=== PATIENT | male | born 1925 | race Caucasian/White ===

== ENCOUNTER 2016-12-11 21:57 | Observation (INO) | payer MEDICARE, OTHER ==
[2016-12-11 23:17] LABS: BASOPHILS 0.5 % (0.0-2.0); EOSINOPHILS 9.9 % (0.0-6.0); EOSINOPHILS# 0.7 X 10^3uL (0.0-0.4); HEMATOCRIT 38.2 % (42.0-54.0); LYMPHOCYTES 27.6 % (20.0-40.0); MEAN CELL VOLUME 102.8 fL (80.0-100.0); MONOCYTES 7.6 % (2.0-10.0); MONOCYTES# 0.6 X 10^3uL (0.2-1.0); NEUTROPHILS 54.4 % (54.0-75.0); PLATELET COUNT 257 X 10^3uL (130-440); RED BLOOD COUNT 3.72 X 10^6uL (4.20-6.10); RED CELL DISTRIBUTION WIDTH 14.7 % (11.5-14.5); WHITE BLOOD COUNT 7.3 X 10^3uL (3.9-10.7)
[2016-12-11 23:22] LABS: ALBUMIN 3.7 g/dL (3.5-5.0); ALKALINE PHOSPHATASE 100 U/L (38-126); ALT 32 U/L (21-72); AST 35 U/L (17-59); BILIRUBIN, DIRECT 0.4 mg/dL (0.0-0.4); BILIRUBIN, TOTAL 0.5 mg/dL (0.2-1.3); TOTAL PROTEIN 6.8 g/dL (6.3-8.2)
[2016-12-11 23:33] LABS: TROPONIN I 0.013 ng/mL (0.00-0.034)
[2016-12-11 23:55] LABS: ARTERIAL BLOOD GAS HCO3 17.7 mmol/L (22-26); ARTERIAL BLOOD GAS PCO2 34.2 mmHg (35-45)
[2016-12-12 00:20] LABS: MAGNESIUM 1.9 mg/dL (1.6-2.3)
[2016-12-12 00:31] LABS: BLOOD UREA NITROGEN 39 mg/dL (9-20); CALCIUM 9.1 mg/dL (8.4-10.2); CHLORIDE 105 mmol/L (98-107); GLUCOSE 73 mg/dL (70-100); POTASSIUM 5.4 mmol/L (3.5-5.1); SODIUM 135 mmol/L (137-145)
--- NOTE | 2016-12-12 01:19 | CT REPORT ---
HISTORY: Headache and dizziness COMPARISON: None. TECHNIQUE: Axial non-contrast images obtained from skull vertex through foramen magnum. Dose reduction technique was utilized. FINDINGS: There is mild global brain atrophy compatible with age. There is a single subcentimeter calcification in the right frontal lobe of doubtful clinical significance. There is no hemorrhage. There is no h ydrocephalus. No mass lesion is identified. Elliott white differentiation adequate, there is no infarc tion. No midline shift is identified. The paranasal sinuses are clear. IMPRESSION: 1. No acute intracranial abnormality. Final Electronic Signature: This report was electronically signed by Joselo Trammell MD on 12/12/2016 1 :17 AM. tparadis /
--- NOTE | 2016-12-12 01:24 | CT REPORT ---
HISTORY: Shortness of breath COMPARISON: None. TECHNIQUE: This examination was performed using automated exposure control, adjustment of mA or kV according to patient size, and/or use of iterative reconstruction technique. Axial CT imaging from the thoracic i nlet through the upper abdomen following administration of IV contrast during peak opacification of t he pulmonary arteries, multiplanar reformatted and 3-D images are evaluated. 100cc Isovue 300 and contrast. FINDINGS: There is emphysema and both lungs at the apices. There is some scarring or atelectasis at both lung b ases. There is no lobar consolidation, pleural effusion, or pneumothorax. There is coronary artery and aortic atherosclerosis without aneurysm. Pain pulmonary artery is normal size. The heart is normal size. There is no pericardial effusion. There is no gross mediastinal or h ilar lymphadenopathy. There is no focal bone lesion. There are multiple calcified gallstones within the gallbladder. There is no pulmonary embolism. IMPRESSION: 1. No pulmonary masses. 2. Emphysema. 3. Cholelithiasis. 4. Coronary artery and aortic atherosclerosis. .. Final Electronic Signature: This report was electronically signed by Joselo Trammell MD on 12/12/2016 1 :21 AM. tparadis /
[2016-12-12] MEDS ORDERED: POLYETHYLENE GLYCOL 3350 17 GM POWD.PACK PO PRN (01:32)
[2016-12-12] MEDS ORDERED: ZOLPIDEM TARTRATE 5 MG TABLET PO PRN (01:32)
[2016-12-12] MEDS ORDERED: ACETAMINOPHEN 325 MG TABLET PO PRN (01:32)
[2016-12-12] MEDS ORDERED: HOME MEDICATION LIST NEEDED 1 EA EACH MISC ONE (01:32)
[2016-12-12] MEDS ORDERED: MAG-AL PLUS XS SUSP 30 ML UDC PO PRN (01:32)
[2016-12-12] MEDS ORDERED: METHYLPREDNISOLONE SOD 125 MG/2 ML VIAL ONE (01:45)
[2016-12-12] MEDS ORDERED: IPRATROPIUM/ALBUTEROL 0.5/3 MG 3 ML AMPUL.NEB INHALATION ONE (01:45)
--- NOTE | 2016-12-12 01:47 | ER NURSING DOCUMENTATION ---
Nurse's Notes [facility] Name:Purvi Aguilar Age:89 yrs Sex:Male :1925 Arrival Date:12/11/2016 Time:21:57 Bed1 Private MD:Abilio Hernandez Diagnosis:Dizziness - Vertigo Presentation: 12/11 22:28 Acuity: ANGELIQUE 2 mv 22:30 Presenting complaint: Patient states: he is feeling numb from head to toe and dizzy and mv no energy. has been going on for a few days but was worse tonight. Transition of care: Home. 22:30 Method Of Arrival: Private Vehicle mv 22:30 Notified ED Physician of patient's arrival and CC Dr. Radford notified. mv Triage Assessment: 22:39 General: Appears in no apparent distress, Behavior is appropriate for age, cooperative. mv Pain: Denies pain. Neuro: Reports numbness in head to toe. 23:06 Cardiovascular: No deficits noted. Respiratory: No deficits noted. GI: No deficits mv noted. : No deficits noted. Derm: No deficits noted. Musculoskeletal: No deficits noted. Historical: - Allergies: No known drug Allergies; - Home Meds: 1. Celebrex 100 mg oral cap once daily 2. lisinopril 5 mg oral tab once daily 3. 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 - Ebola Screening: : No symptoms or risks identified at this time. . - Immunization history: Pneumococcal vaccine is up to date, Flu Vaccine < 1 year. - Social history: Smoking status: Patient uses tobacco products, current every day smoker. Screenin/11 01:21 Infectious Disease Risk None. Abuse screen: Denies threats or abuse. Nutritional bw2 screening: No deficits noted. Assessment: 12/11 23:05 See Triage Assessment done by same RN. mv Vital Signs: 22:13 BP 105 / 63; Pulse 78; Resp 14; Temp 98.2; Pulse Ox 91% on R/A; Weight 61.23 kg; Height mv 5 ft. 7 in. (170.18 cm); Pain 0/10; 12/12 00:07 BP 114 / 63 Supine; Pulse 67; Pulse Ox 97% on R/A; bw2 00:07 BP 102 / 67 Sitting; Pulse 74; Resp 18; Pulse Ox 94% on R/A; bw2 00:07 BP 106 / 65 Standing; Pulse 79; Resp 18; Pulse Ox 92% on R/A; bw2 01:21 BP 129 / 68; Pulse 69; Resp 18; Pulse Ox 97% 2 lpm ; bw2 12/11 22:13 Body Mass Index 21.14 (61.23 kg, 170.18 cm) mv ED Course: 12/11 22:04 Patient arrived in ED. em2 22:04 Abilio Hernandez MD is Private Physician. em2 22:15 Kwame Radford MD is Attending Physician. be 22:21 EKG done. (by ED staff). Inserted saline lock: 20 gauge in left antecubital area and em1 blood collected. 22:28 Triage completed. mv 22:30 Port Xray Completed. mr 22:51 Urine collected. Clean catch specimen. em1 23:05 Arm band placed on Bed in low position Call Light in Reach Gowned. mv 23:45 ABG drawn. (by ED staff). on oxygen. positive Henry test; after draw pressure held on nf site for 5 minutes and coban dressing applied. 12/12 00:05 Jaimie Read is Primary Nurse. bw2 00:14 while standing for orthostatics, pt became dizzy. bw2 00:15 trail of pt being off oxygen failed. 10 min after oxygen was removed pt oxygen level bw2 was at 87%. oxygen placed back on oxygen. 01:21 Henry Santizo MD is Admitting Physician. be 01:21 Valuables Remains with patient Patient has correct armband on for positive bw2 identification. Placed in gown. Side rails up X2. 01:[address] mr 01:[address] back [address]. mr Administered Medications: 12/11 23:03 Drug: NS 0.9% 1000 ml; Route: IV; Rate: bolus; Site: left antecubital; mv 12/12 01:37 Follow up: IV Status: Completed infusion bw2 00:22 Drug: NS 0.9% 1000 ml; Route: IV; Rate: bolus; Site: right antecubital; bw2 01:37 Follow up: IV Status: Completed infusion bw2 01:35 Drug: Solu-MEDROL 125 mg; Route: IVP; Site: left antecubital; bw2 01:37 Follow up: Response: No adverse reaction bw2 01:35 Drug: DuoNeb (Albuterol 2.5 mg, Atrovent 0.5 mg); 3 ml; Route: Nebulizer; bw2 01:37 Follow up: Response: No adverse reaction bw2 Point of Care Testing: Urine Dip: 12/11 22:51 pH: 6.0; ; Specific [place]: 1.010; Ketones: Negative; Glucose: Negative; Protein: em1 Negative; Leukocytes: Negative; Nitrite: Negative ; Blood: Negative; Bilirubin: Negative ; Urobilinogen: Normal Outcome: 12/12 01:22 Decision to Admit by Provider. be 01:41 Admitted to Med/surg accompanied by nurse, family with patient. bw2 01:41 Condition: good 01:41 Discharge Assessment: Patient awake, alert and oriented x 3. No cognitive and/or functional deficits noted. Patient verbalized understanding of disposition instructions. 01:45 Report given to Dennis COYNE bw2 01:45 Instructed on need to admit Demonstrated understanding of instructions. 01:47 Patient left the ED. bw2 Signatures: Maggie Stein RN RN nf Elliott, Brian, MD MD be Meinking-tech, Fernanda-tech em1 Meinking-reg, Fernanda-reg em2 bing da silva Beth bw2 Du Saravia
--- NOTE | 2016-12-12 01:47 | ER PHYSICIAN DOCUMENTATION ---
Physician Documentation [facility] Name:Purvi Aguilar Age:89 yrs Sex:Male :1925 Arrival Date:12/11/2016 Time:21:57 Bed1 Private MD:Abilio Hernandez ED, Brian Disposition: 12/12/16 01:22 Admit ordered for Henry Santizo. Preliminary diagnosis is Dizziness - Vertigo. - Bed requested for Medical/Surgical. - Condition is Fair. - Problem is new. - Symptoms have improved. 23 HR OBS No HPI: 12/11 22:58 This 89 yrs old Male presents to ER via Private Vehicle with complaints of be Dizziness. 22:58 The patient presents with generalized weakness, lightheadedness. Onset: The be symptom(s)/episode began/occurred gradually, today. Associated signs and symptoms: Pertinent negatives: ataxia, chest pain, confusion, diaphoresis, head injury, headache, nausea, vomiting, cough or urinary symptoms. Historical: - Allergies: No known drug Allergies; - Home Meds: 1. Celebrex 100 mg oral cap once daily 2. lisinopril 5 mg oral tab once daily 3. 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 - Ebola Screening: : No symptoms or risks identified at this time. . - Immunization history: Pneumococcal vaccine is up to date, Flu Vaccine < 1 year. - Social history: Smoking status: Patient uses tobacco products, current every day smoker. ROS: 22:59 Neuro: Positive for dizziness, weakness, Negative for altered mental status, headache, be speech changes, near syncope, visual changes. 22:59 All other systems are negative. Exam: 23:00 Constitutional: This is a well developed, well nourished patient who is awake, alert, be and in no acute distress. Head/Face: Normocephalic, atraumatic. Eyes: Pupils equal round and reactive to light, extra-ocular motions intact. Lids and lashes normal. Conjunctiva and sclera are non-icteric and not injected. Cornea within normal limits. Periorbital areas with no swelling, redness, or edema. ENT: Nares patent. No nasal discharge, no septal abnormalities noted. Tympanic membranes are normal and external auditory canals are clear. Oropharynx with no redness, swelling, or masses, exudates, or evidence of obstruction, uvula midline. Mucous membranes moist. Neck: Trachea midline, no thyromegaly or masses palpated, and no cervical lymphadenopathy. Supple, full range of motion without nuchal rigidity, or vertebral point tenderness. No Meningismus. Chest/axilla: Normal chest wall appearance and motion. Nontender with no deformity. No lesions are appreciated. Cardiovascular: Regular rate and rhythm with a normal S1 and S2. No gallops, murmurs, or rubs. Normal PMI, no JVD. No pulse deficits. Respiratory: Lungs have equal breath sounds bilaterally, clear to auscultation and percussion. No rales, rhonchi or wheezes noted. No increased work of breathing, no retractions or nasal flaring. Abdomen/GI: Soft, non-tender, with normal bowel sounds. No distension or tympany. No guarding or rebound. No evidence of tenderness throughout. Back: No spinal tenderness. No costovertebral tenderness. Full range of motion. 23:00 Skin: Warm, dry with normal turgor. Normal color with no rashes, no lesions, and no be evidence of cellulitis. 23:00 Neuro: Orientation: is normal, Cerebellar function: is grossly normal, Gait: is steady, at a normal pace, without difficulty. Vital Signs: 22:13 BP 105 / 63; Pulse 78; Resp 14; Temp 98.2; Pulse Ox 91% on R/A; Weight 61.23 kg; Height mv 5 ft. 7 in. (170.18 cm); Pain 0/10; 12/12 00:07 BP 114 / 63 Supine; Pulse 67; Pulse Ox 97% on R/A; bw2 00:07 BP 102 / 67 Sitting; Pulse 74; Resp 18; Pulse Ox 94% on R/A; bw2 00:07 BP 106 / 65 Standing; Pulse 79; Resp 18; Pulse Ox 92% on R/A; bw2 01:21 BP 129 / 68; Pulse 69; Resp 18; Pulse Ox 97% 2 lpm ; bw2 12/11 22:13 Body Mass Index 21.14 (61.23 kg, 170.18 cm) mv MDM: 12/11 22:17 Patient medically screened. be 23:01 Differential diagnosis: cardiac arrhythmia, CVA, generalized weakness, hypovolemia, be idiopathic dizziness, sepsis. Data reviewed: vital signs, nurses notes, lab test result(s), EKG, radiologic studies, plain films. ECG:. 12/12 01:24 Data reviewed: and as a result, I will admit patient, administer IV fluids, NS bolus, be O2. 12/11 23:21 Order name: CBC AUTO DIF, MDIF/RMOR IF IND; Complete Time: 01:24 EDCO 12/11 23:37 Interpretation: Normal Except: Anemia. be 12/11 23:28 Order name: HEPATIC PANEL; Complete Time: 01:24 EDCO 12/11 23:38 Interpretation: Normal. be 12/11 23:37 Order name: TROPONIN I; Complete Time: 01:24 EDCO 12/11 23:38 Interpretation: Normal. be 12/11 23:56 Order name: ARTERIAL BLOOD GAS; Complete Time: 23:57 EDCO 12/12 00:20 Interpretation: Abnormal. be 12/12 00:22 Order name: MAGNESIUM; Complete Time: 01:24 EDCO 12/12 01:23 Interpretation: Normal. be 12/12 00:33 Order name: BASIC METABOLIC PANEL; Complete Time: 01:24 EDCO 12/12 01:24 Interpretation: Normal Except: prerenal azotemia. be 12/12 06:28 Order name: BASIC METABOLIC PANEL EDCO 12/12 06:45 Order name: CBC AUTO DIF, MDIF/RMOR IF IND EDCO 12/12 09:11 Order name: TROPONIN I [facility] 12/12 01:20 Order name: CAT SCAN; HEAD W/O CON [id number]; Complete Time: 01:24 EDCO 12/12 01:24 Interpretation: Normal. be 12/12 01:26 Order name: CAT SCAN; CHEST ANGIO [id number]; Complete Time: 01:29 EDCO 12/12 01:28 Interpretation: Normal Except: emphysema, cholelithiasis and CAD. be 12/12 08:59 Order name: CHEST; SINGLE VIEW [id number] EDCO 12/12 11:19 Order name: BRAIN W/WO CONTRAST [id number] [facility]CO 12/13 17:21 Order name: US SOFT TISSUE HEAD/NECK [id number] EDCO 12/11 22:16 Order name: 12-lead EKG; Complete Time: 22:59 be 12/11 22:16 Order name: Iv Saline Lock; Complete Time: 22:59 be 12/11 22:16 Order name: Place Patient On Monitor; Complete Time: 22:59 be 12/11 22:16 Order name: Pulse Ox Continuous; Complete Time: 23:04 be 12/11 22:16 Order name: Orthostatics after Bolus; Complete Time: 00:05 be EC/10 23:01 Rate is 74 beats/min. Rhythm is regular, Normal Sinus Rhythm with No ectopy. QRS [place] be is Normal. TN interval is normal. QRS interval is normal. QT interval is normal. No Q waves. T waves are Peaked. No ST changes noted. Clinical impression: Normal ECG. Interpreted by me. Dispensed Medications: 23:03 Drug: NS 0.9% 1000 ml; Route: IV; Rate: bolus; Site: left antecubital; 12/12 01:37 Follow up: IV Status: Completed infusion bw2 00:22 Drug: NS 0.9% 1000 ml; Route: IV; Rate: bolus; Site: right antecubital; bw2 01:37 Follow up: IV Status: Completed infusion bw2 01:35 Drug: Solu-MEDROL 125 mg; Route: IVP; Site: left antecubital; bw2 01:37 Follow up: Response: No adverse reaction bw2 01:35 Drug: DuoNeb (Albuterol 2.5 mg, Atrovent 0.5 mg); 3 ml; Route: Nebulizer; bw2 01:37 Follow up: Response: No adverse reaction 2 Point of Care Testing: Urine Dip: 12/11 22:51 pH: 6.0; ; Specific [place]: 1.010; Ketones: Negative; Glucose: Negative; Protein: em1 Negative; Leukocytes: Negative; Nitrite: Negative ; Blood: Negative; Bilirubin: Negative ; Urobilinogen: Normal Signatures: Kwame Radford MD MD be vogel, margaux mv Wisely, Beth 2
[2016-12-12] MEDS ORDERED: NORMAL SALINE 1,000 ML IV SCH (02:00)
[2016-12-12 06:07] LABS: BASOPHILS 0.5 % (0.0-2.0); EOSINOPHILS 0.5 % (0.0-6.0); HEMATOCRIT 37.3 % (42.0-54.0); HEMOGLOBIN 12.6 g/dL (14.0-18.0); LYMPHOCYTES 4.6 % (20.0-40.0); LYMPHOCYTES# 0.3 X 10^3uL (0.8-3.8); MEAN CELL VOLUME 102.6 fL (80.0-100.0); MEAN CORPUS. HGB CONCENTRATION 33.9 g/dL (32.0-36.0); MEAN CORPUSCULAR HEMOGLOBIN 34.7 pg (29.0-35.0); MEAN PLATELET VOLUME 8.2 fL (7.4-10.4); MONOCYTES 0.4 % (2.0-10.0); NEUTROPHILS# 7.3 X 10^3uL (2.6-6.7); PLATELET COUNT 252 X 10^3uL (130-440); RED BLOOD COUNT 3.63 X 10^6uL (4.20-6.10); RED CELL DISTRIBUTION WIDTH 14.8 % (11.5-14.5); WHITE BLOOD COUNT 7.6 X 10^3uL (3.9-10.7)
[2016-12-12 06:17] LABS: BLOOD UREA NITROGEN 33 mg/dL (9-20); CALCIUM 8.7 mg/dL (8.4-10.2); CHLORIDE 108 mmol/L (98-107); GLUCOSE 77 mg/dL (70-100); POTASSIUM 5.5 mmol/L (3.5-5.1); SODIUM 137 mmol/L (137-145)
[2016-12-12] MEDS ORDERED: IPRATROPIUM/ALBUTEROL 0.5/3 MG 3 ML AMPUL.NEB INHALATION SCH ×2 (07:30→13:00)
--- NOTE | 2016-12-12 08:34 | RADIOLOGY REPORT ---
A limited single portable view of the chest is correlated with CT scan. Heart and vessels are unremarkable. Mild bibasilar scarring and/or atelectasis is noted. No infiltrate, fluid or pneumothorax is seen. IMPRESSION: Mild bibasilar scarring and/or atelectasis. MTDD
[2016-12-12] MEDS ORDERED: predniSONE 20 MG TABLET PO SCH (09:00)
[2016-12-12] MEDS ORDERED: LISINOPRIL 5 MG TABLET PO SCH (09:00)
[2016-12-12] MEDS ORDERED: CELECOXIB 100 MG CAPSULE PO SCH (09:00)
--- NOTE | 2016-12-12 09:09 | HISTORY & PHYSICAL ---
Reason for admission: Dizziness. Low oxygen level. Weakness. HPI: 89-year-old male. He generally lives in [place] but states here in [place] during the summer. Previously seen by Dr. Hernandez on a number of occasions although not recently. Gradual decline in strength and balance over the last few years. Previously attributed to peripheral vascular disease but apparently more recently diagnosed with spinal stenosis. He has had epidural injections times multiple with some improvement. Over the last few days, he has had increasing feeling of tingling all over his body including bilateral upper and lower extremities, torso, and face. In association with this, he has felt more fatigued and generally weaker. More difficulty walking with decrease in balance. No falls. However, symptoms were severe enough last night that he came into the emergency department. He was given IV fluids and oxygen (he was hypoxic) and had some improvement in symptoms. He is being admitted for further evaluation and treatment. CT angiogram of the chest did not show any evidence of PE or focal infiltrate. However, there was evidence of emphysema. He denies any recent fevers or chills. No significant headache. No changes in cognition, changes in vision, focal changes in strength or sensation ( generalized symptoms as above). No chest pain or palpitations, although he does have a history of CAD. No orthopnea, PND, or lower extremity edema. No abdominal pain, nausea, or vomiting. No dysuria or frequency. He did have diarrhea a few days ago with loose stools but no blood. Resolved as of yesterday. Of note, he does have a history of melanoma and has noticed a lump in his left jaw angle region. This is near the resection site of one of his melanomas. He has not had recent imaging. Past medical history: Allergy induced asthma CAD with PTCA times 2 in roughly 2004 Hypertension Hypercholesterolemia Lumbar spine spinal stenosis Melanoma times 2 (resection without x-ray therapy or chemotherapy) Renal carcinoma on the left, status post partial nephrectomy (without x-ray therapy or chemotherapy) Arthritis Smoking, long history Past surgical history: Left kidney partial resection for renal cell carcinoma Melanoma resection times 2 involving head and neck Hernia repair times 2 Cataracts Left rotator cuff surgery Allergies: None. Medications: Advair at unknown dose 2 inhalations per day; another inhaler 1 time per day; lisinopril 5 milligrams by mouth daily; atorvastatin 40 milligrams by mouth daily at bedtime; Celebrex 100 milligrams by mouth daily. He does not take aspirin. Social: Still smokes. 1 half to three-quarter pack per day. 70 year history of smoking. Alcohol 2-3 drinks of vodka per day. He does not measure out each glass and this may be more than 1 shot per drink. No recreational drugs. Retired savings and loan director. Family history: Mother with lung cancer. Brother with colon cancer. Another brother with prostate cancer. Review of systems: Pertinent positives and negatives are as above. Remainder are negative. Physical examination: Vital signs: Temperature 37.2. Blood pressure 114/61, pulse 74, respirations 16. 94% on 2 liters. Saturating in the mid to high eighties in the emergency department on room air. General: Thin elderly male. No apparent distress. HEENT: Normocephalic atraumatic. Pupils are equal, round, and reactive to light. Extraocular muscles are intact with full range of motion. Oropharynx is clear. 1 centimeter firm freely mobile nodule at the angle of the jaw on the left. Neck: Supple. No thyromegaly. Chest: Decreased breath sounds. Minimal scattered wheezes. Bibasilar rales. Cardiac: Regular rate and rhythm. No S3 or S4. No murmur. No JVD at 90. Abdomen: Positive bowel sounds. Soft, nontender, nondistended. No hepatosplenomegaly. Back: No CVA or spinous process tenderness. Lymph: No cervical or supraclavicular lymphadenopathy other than left neck nodule as above. Neuro: Alert and oriented times 4. Light touch sensation with paresthesias diffusely including face, arms, legs. Strength 5/5 in bilateral upper and lower extremities with the exception of left shoulder which is 3/5 (prior surgery). Skin: No rash. Labs: White blood count 7.3 with hematocrit 38 and MCV of 103. Platelet count 257. Chem panel showing sodium of 135, potassium 5.4, creatinine 1.4. LFTs normal. PT at 7.32 with CO2 of 34, O2 of 86, bicarbonate of 18. Chest x-ray: Hyperinflation. No lateral. No focal infiltrate. CT angiogram of chest: No pulmonary embolus. Emphysema changes involving apices of the lungs bilaterally. CT of brain: No acute/focal changes. Assessment and plan: 1. COPD with exacerbation: Patient returning within the last month to high altitude. Difficulty with plan: Allergies. Now, presenting with hypoxemia, dizziness, weakness felt to be at least partially due to pulmonary decompensation. No evidence of pneumonia. No evidence of pulmonary embolus. No evidence of significant cardiac decompensation. Evidence of COPD which has not been previously diagnosed although he was on oxygen last summer when at this altitude. Admitted for this problem. Placed on oxygen. Oral steroids. Bronchodilators. Respiratory therapy. Smoking cessation counseling. 2. Dizziness: At least partially due to hypoxemia, and is feeling better today although still not resolved. Still with diffuse paresthesias of unclear etiology. Still diffusely weak. Physical therapy consultation. Treatment of respiratory issues as above. With his history of melanoma and with a nodule in his left neck/jaw area, will check MRI scan of the brain. CT scan was negative. Gentle IV fluids. 3. CAD: No chest pain or evidence of CHF on exam. However, with this history, will check cardiac enzymes. Restart aspirin. Hold off on beta blockers considering airway reactivity. Continue statin. Hold GUY inhibitor considering mild hyperkalemia. 4. Hypertension: Holding GUY inhibitor as above. 5. Hypercholesterolemia: Continue atorvastatin. 6. Spinal stenosis: Continue Celebrex for now. Tylenol if needed. Physical therapy evaluation considering lower extremity weakness. 7. Diarrhea: Clinically resolved. Follow for recurrence. 8. History of melanoma and renal cell carcinoma: See discussion above. MRI scan of the brain is pending. 9. DVT prophylaxis: Lovenox. 10. Cardiac resuscitation status: Discussed at length with patient. He wishes to be DNR. MTDD
[2016-12-12] MEDS ORDERED: LORazepam 0.5 MG TABLET PO ONE (09:29)
--- NOTE | 2016-12-12 11:17 | MRI REPORT ---
HISTORY: Headache, dizziness COMPARISON: Head CT same day TECHNIQUE: Multiplanar multi sequential imaging of the brain obtained with and without IV gadolinium. 15cc Magnevist contrast. FINDINGS: BRAIN: The midline structures are normal. Age appropriate atrophy. Mild scattered foci of white matter signa l abnormality which are nonspecific but most commonly seen with chronic microvascular ischemia. No di ffusion restriction. No hemorrhage. No hydrocephalus. No mass effect or midline shift. The major intr acranial flow-voids are patent. No abnormal parenchymal enhancement. BONES AND EXTRACRANIAL SOFT TISSUES: There has been prior cataract surgery. Mild bilateral maxillary sinus mucosal thickening. No gross b one lesion is identified. IMPRESSION: 1. No acute intracranial abnormality. 2. Age-related atrophy and sequela of chronic microvascular ischemia. Final Electronic Signature: This report was electronically signed by Du Emmanuel MD on 12/12/2016 11:14 AM. bud /
[2016-12-12 15:13] VITALS: BP 111/56; PULSE 84; RESP 12; TEMP 98
--- NOTE | 2016-12-12 17:11 | DC SUMMARY: IM Note ---
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 CT angiogram of the chest showing no evidence of pulmonary embolus or focal infiltrate suggestive of infection. No symptoms to suggest cardiac ischemia, and cardiac enzymes negative times 1. CT scan did show emphysema changes. Respiratory therapy consult done but decision made to hold off on all PFTs until he is back to baseline. Treated with oxygen, prednisone, DuoNeb's. Responded well with significant improvement in dizziness and tingling. Improvement in strength and gait and did well with physical therapy. He will be discharged on his usual Advair, albuterol (he will verify this medication as he is only taking once per day--may instead be Spiriva), prednisone for 5 days, and oxygen 24 hours per day. May be able to decrease oxygen if doing better at follow-up. He was not taking aspirin, and this was started at low dose due to CAD history. Lisinopril was held due to good blood pressures and mild hyperkalemia. This will need to be rechecked in the outpatient setting before restarting. Atorvastatin was continued. He incidentally brought up and mass in his left submandibular area inferior and posterior to the angle of the jaw. With his history of malignant melanoma times 2 and neurologic symptoms, MRI scan of the brain was done with and without contrast. This showed no mass and only small vessel changes. An ultrasound of the neck showed some echogenicity in 2 small cystic appearing structures. This was discussed with the patient. He will be referred to Dr. Lozano of general surgery for fine-needle aspiration versus excisional biopsy. He has previously seen Dr. Hernandez when here in [place], but he has not been seen recently. Will arrange follow-up in 2 weeks. - Time Spent with Patient Total time spent providing and/or coordinating discharge services: Discharge - Patient/Caregiver Discharge Instructions Activity Level: As tolerated. Oxygen 24 hours per day for now. Diet: Cardiac. Additional Instructions: Please call with verification of your inhalers including name, dosing, and instructions. Follow up: ELIN LOZANO MD [ACTIVE (Staff Physician)] - Next Appointment (New consult for left submandibular masses with history of melanoma.) SOPHIE ENRIQUEZ MD [Primary Care Provider] - 2 Weeks Overall discharge status: patient is progressing back to baseline Print Language: CHINESE Home Medications: predniSONE [Deltasone*] 20 mg PO DAILY #5 tab Disposition: HOME, SELF-CARE Discharge Summary Data - Medication History Medication History: Home Medications Acetaminophen [Tylenol*] 650 mg PO Q6H PRN 12/12/16 Albuterol Hfa [Proventil Inhaler*] 1 inh IH DAILY 12/12/16 Atorvastatin Calcium [Lipitor*] 40 mg PO DAILY 12/12/16 Celecoxib [Celebrex*] 100 mg PO DAILY 12/12/16 Fluticasone/Salmeterol 100/50 [Advair 100/50 Diskus*] 1 inh INHALATION DAILY 04/20 aspirin EC [Aspirin EC*] 81 mg PO DAILY 12/12/16 predniSONE [Deltasone*] 20 mg PO DAILY #5 tab 12/12/16 Inpatient Medications 12/12/16 09:00 aspirin EC [Ecotrin 81 mg] 81 mg PO DAILY 12/12/16 13:00 Ipratropium/Albuterol 0.5/3 mg [Duoneb 2.5-0.5 mg/3 ml Soln] 3 ml INHALATION QIDINH 12/13/16 09:00 Celecoxib [CeleBREX] 100 mg PO DAILY Fluticasone/Salmeterol 100/50 [Advair 100/50 Diskus] 1 inh INHALATION DAILY Procedures and tests throughout hospitalization: Completed Lab Orders 12/12/16 05:10 TROPONIN I [CHEM] Urgent Completed Imaging Orders 12/12/16 08:37 MRI [BRAIN W/WO CONTRAST 44980] [MRI] Stat Pending Orders 12/12/16 01:32 Resuscitation Status Routine 12/12/16 08:35 ultrasound [US SOFT TISSUE HEAD/NECK 76912] [US] Urgent 12/12/16 08:39 Titrate [Titrate Oxygen] TITRATE B/W 88-92% 12/12/16 09:00 aspirin EC [Ecotrin 81 mg] 81 mg PO DAILY 12/12/16 09:15 Respiratory Therapy Consult [RT] Routine Smoking Cessation Teaching by RT [RT] Routine 12/12/16 13:00 Ipratropium/Albuterol 0.5/3 mg [Duoneb 2.5-0.5 mg/3 ml Soln] 3 ml INHALATION QIDINH 12/12/16 16:09 Physical Therapy Plan of Care [PT] Routine 12/13/16 09:00 Celecoxib [CeleBREX] 100 mg PO DAILY Fluticasone/Salmeterol 100/50 [Advair 100/50 Diskus] 1 inh INHALATION DAILY Labs on day of discharge: Labs from last 24 hours 12/12/16 12/12/16 05:15 05:10 WBC 7.6 RBC 3.63 L Hgb 12.6 L Hct 37.3 L MCV 102.6 H MCH 34.7 MCHC 33.9 RDW 14.8 H Plt Count 252 MPV 8.2 Neutrophils % 94.0 H Lymphocytes % 4.6 L Eosinophils % 0.5 Basophils % 0.5 Neutrophils # 7.3 H Lymphocytes # 0.3 L Monocytes 0.4 L Monocytes # 0.0 L Eosinophils # 0.0 Basophils # 0.0 Sodium 137 Potassium 5.5 H Chloride 108 H Carbon Dioxide 18 L BUN 33 H Creatinine 1.2 GFR Calculation Not Reportable Glucose 77 Calcium 8.7 Troponin I < 0.012 IM: Discharge Physical Exam - I&O/Vital Signs I&O: Intake & Output 12/12/16 12/12/16 12/12/16 05:59 13:59 21:59 Intake Total 100 120 Output Total 1000 Balance -900 120 Weight 58.06 kg Intake: Oral 100 120 Output: Urine 1000 Other: Urine Appearance Clear Clear Urine Color Yellow Yellow Voiding Method Toilet Toilet Vital Signs: Last Vital Signs Temp 36.6 C 12/12/16 15:00 Pulse 84 12/12/16 15:00 Resp 12 12/12/16 15:00 BP 111/56 12/12/16 15:00 Pulse Ox 90 12/12/16 15:00 Oxygen Flow Rate 0.5 Oxygen Delivery Method Nasal Cannula - Constitutional General appearance: Present: thin - Head Head exam: Present: normal inspection - Neck Neck exam: Present: other (firm nodule at the angle of the jaw on the left) - Respiratory Respiratory exam: Present: decreased breath sounds, rales (bibasilar). Absent: stridor, wheezes - Cardiovascular Cardiovascular exam: Present: RRR. Absent: S3, S4, systolic murmur - GI/Abdominal GI/Abdominal exam: Present: normal bowel sounds. Absent: organomegaly, tenderness - Extremities Exam Extremities exam: Absent: calf tenderness, edema - Neurological Exam Neurological exam: Present: oriented X3 - Allied Health Notes Allied health notes reviewed: RT
[2016-12-12 17:23] VITALS: O2SAT 87
[2016-12-12] MEDS ORDERED: ATORVASTATIN CALCIUIM 40 MG TABLET PO SCH (21:00)
--- NOTE | 2016-12-13 08:46 | US REPORT ---
REASON FOR EXAMINATION: Left submandibular mass. FINDINGS: Directed ultrasound of the left submandibular region was performed. Correlating with the palpable mass are two hypoechoic lesions with increased vascularity. The larger lesion measures 0.8 cm x 1.0 cm x 1.6 cm. The smaller lesions measures 0.5 cm x 0.8 cm x 0.9 cm. Appearance is suggestive of lymphadenopathy. No other abnormality is identified. IMPRESSION: Probable lymphadenopathy correlating with the palpable abnormality. Complex cyst is not absolutely excluded. Further evaluation with soft tissue MRI of the neck without contrast may be of benefit. The findings were personally reviewed with Dr. Santizo and Dr. Lozano. JESUS
[2016-12-13] MEDS ORDERED: ATORVASTATIN CALCIUIM 40 MG TABLET PO SCH (09:00)
[2016-12-13] MEDS ORDERED: FLUTICASONE/SALMETEROL 100/50 14 INH DISK INHALATION SCH (09:00)
[2016-12-13] MEDS ORDERED: CELECOXIB 100 MG CAPSULE PO SCH (09:00)
== END 2016-12-12 18:10 | disposition home or self-care (01) ==
LOC: ER 21:57 → IN 12-12 01:51
PROVIDERS: ADMIT Internal Medicine; ATTEND Family Medicine
DX: J44.1 Chronic obstructive pulmonary disease with (acute) exacerbation (principal); R42 Dizziness and giddiness; R09.02 Hypoxemia; I25.10 Atherosclerotic heart disease of native coronary artery without angina pectoris; I12.9 Hypertensive chronic kidney disease with stage 1 through stage 4 chronic kidney disease, or unspecified chronic kidney disease; Z95.5 Presence of coronary angioplasty implant and graft; Z85.53 Personal history of malignant neoplasm of renal pelvis; M15.9 Polyosteoarthritis, unspecified; E78.00 Pure hypercholesterolemia, unspecified; M48.06 Spinal stenosis, lumbar region; J45.909 Unspecified asthma, uncomplicated; Z72.0 Tobacco use; R22.1 Localized swelling, mass and lump, neck; Z79.899 Other long term (current) drug therapy
CPT/HCPCS: 70450; 70553; 71010; 71275; 76536; 80048; 80076; 82803; 83735; 84484; 85025; 93005; 93010; 93041; 94640; 96361; 96374; 99236; 99285; G0378; G8978; G8979; G8980; J2930; J7030; J7620